=== PATIENT | female | born 1955 | race Caucasian/White ===

== ENCOUNTER 2023-11-13 08:43 | Observation (INO) | payer MEDICARE, OTHER ==
[~2023-11-13 08:43] MED LIST: Ropivacaine 49.25 ML, Ketorolac 30 MG, EPINEPHrine 0.5 MG, cloNIDine 80 MCG in Sodium C... INJECT SCH; Tranexamic Acid IN NACL,ISO-OS 1,000 MG in Premix Bag 1 BAG IV SCH
[2023-11-13] MEDS ORDERED: fentaNYL 100 MCG/2 ML SDV ONE (08:52)
[2023-11-13] MEDS ORDERED: Ondansetron 4 MG/2 ML SDV ONE (08:53)
[2023-11-13] MEDS ORDERED: Midazolam 1 MG/ML 2 ML SDV ONE (08:53)
[2023-11-13] MEDS ORDERED: dexmedeTOMIDine HCl 200 MCG/2 ML SDV ONE (08:53)
[2023-11-13] MEDS ORDERED: Phenylephrine 1% 10 MG/ML SDV ONE (08:53)
[2023-11-13] MEDS ORDERED: propofoL 50 ML ONE (08:53)
[2023-11-13] MEDS ORDERED: Metoclopramide 10 MG/2 ML SDV IVPUSH PRN (09:02)
[2023-11-13] MEDS ORDERED: fentaNYL 50 MCG/ML SDV IVPUSH PRN (09:02)
[2023-11-13] MEDS ORDERED: droPERidol 5 MG/2 ML SDV IVPUSH PRN (09:02)
[2023-11-13] MEDS ORDERED: Albuterol 0.083% 2.5 MG/3 ML Neb Soln NEB PRN (09:02)
[2023-11-13] MEDS ORDERED: Ondansetron 4 MG/2 ML SDV IVPUSH PRN ×2 (09:02→13:02)
[2023-11-13] MEDS ORDERED: Naloxone 0.4 MG/ML SDV IVPUSH PRN (09:02)
[2023-11-13] MEDS ORDERED: Morphine 2 MG/ML SYRINGE IVPUSH PRN ×2 (09:02→13:02)
[2023-11-13] MEDS ORDERED: HYDROmorphone 1 MG/ML Syringe IVPUSH PRN (09:02)
[2023-11-13] MEDS ORDERED: Lidocaine 1% 5 ML VIAL ONE (09:04)
[2023-11-13] MEDS: Lactated Ringers 1,000 ML IV SCH (09:15)
[2023-11-13] MEDS ORDERED: Ropivacaine 0.5% 5 MG/ML 30 ML SDV ONE (09:41)
[2023-11-13] MEDS ORDERED: EPINEPHrine 1 MG/1 ML Amp ONE (10:37)
[2023-11-13] MEDS ORDERED: ceFAZolin 2 GM Vial ONE (10:58)
[2023-11-13] MEDS ORDERED: Tranexamic Acid 1,000 MG/10 ML Vial ONE (10:58)
[2023-11-13] MEDS ORDERED: Propofol 200 MG/20 ML SDV ONE (12:06)
[2023-11-13] MEDS ORDERED: Sodium Chloride 0.9% 2.5 ML Syringe FLUSH PRN (13:02)
[2023-11-13] MEDS ORDERED: Aluminum Hydroxide/Magnesium Hydroxide/Simethicone XS Susp 30 ML Cup PO PRN (13:02)
[2023-11-13] MEDS ORDERED: Sodium Chloride 0.9% 10 ML Syringe FLUSH PRN (13:02)
[2023-11-13] MEDS ORDERED: diphenhydrAMINE 25 MG Cap PO PRN (13:02)
[2023-11-13] MEDS ORDERED: oxyCODONE 5 MG Tab PO PRN (13:02)
[2023-11-13] MEDS: traMADol 50 MG Tab PO PRN (15:02)
[2023-11-13 15:07] LABS: BASOPHILS ABSOLUTE AUTO 0.04 K/uL (0.00-0.20); BASOPHILS PERCENT AUTO 0.5 % (0.0-1.0); EOSINOPHILS ABSOLUTE AUTO 0.17 K/uL (0.00-0.45); EOSINOPHILS PERCENT AUTO 2.3 % (0.0-6.0); HEMATOCRIT 37.5 % (37.0-47.0); HEMOGLOBIN 12.6 g/dL (12.0-16.0); IMMATURE GRAN ABSOLUTE AUTO 0.02 K/uL (0.00-0.05); IMMATURE GRAN PERCENT AUTO 0.3 % (0.0-0.4); LYMPHOCYTES ABSOLUTE AUTO 2.35 K/uL (1.00-4.80); LYMPHOCYTES PERCENT AUTO 32.3 % (24.0-44.0); MEAN CORPUSCULAR HEMOGLOBIN 31.5 pg (28.0-32.0); MEAN CORPUSCULAR HGB CONC 33.6 g/dL (32.0-36.0); MEAN CORPUSCULAR VOLUME 93.8 fL (83.0-99.0); MEAN PLATELET VOLUME 9.4 fL (9.4-12.3); MONOCYTES ABSOLUTE AUTO 0.45 K/uL (0.00-0.80); MONOCYTES PERCENT AUTO 6.2 % (0.0-8.0); NEUTROPHILS ABSOLUTE AUTO 4.25 K/uL (1.80-7.70); NEUTROPHILS PERCENT AUTO 58.4 % (41.0-71.0); PLATELET COUNT,PLT 167 K/uL (150-400); WHITE BLOOD CELL COUNT,WBC 7.28 K/uL (3.9-11.3)
[2023-11-13 15:39] LABS: CALCIUM 8.9 mg/dL (8.5-10.1); CARBON DIOXIDE,CO2 25.8 mmol/L (21.0-32.0); CREATININE 0.9 mg/dL (0.6-1.0); EST CRCL DRUG DOSING (CG) 52.34 mL/min; MAGNESIUM 2.1 mg/dL (1.8-2.4); POTASSIUM,K 4.3 mmol/L (3.5-5.1)
[2023-11-13] MEDS: Acetaminophen 325 MG Tab PO SCH (17:03)
[2023-11-13] MEDS: ceFAZolin 2 GM in Sodium Chloride 0.9% 50 ML IV SCH ×2 (18:02→19:38)
[2023-11-13] MEDS: Aspirin 325 MG Tab PO SCH (21:49)
[2023-11-13] MEDS: Docusate Sodium 100 MG Cap PO SCH (21:49)
[2023-11-14 06:26] LABS: HEMATOCRIT 32.5 % (37.0-47.0); HEMOGLOBIN 10.9 g/dL (12.0-16.0)
[2023-11-14 06:43] LABS: CALCIUM 8.4 mg/dL (8.5-10.1); EST CRCL DRUG DOSING (CG) 47.1 mL/min; MAGNESIUM 1.9 mg/dL (1.8-2.4); POTASSIUM,K 4.3 mmol/L (3.5-5.1)
[2023-11-14] MEDS: Famotidine 20 MG Tab PO SCH (09:51)
[2023-11-14] MEDS: Losartan 50 MG Tab PO SCH (09:52)
[2023-11-14] MEDS: Polyethylene Glycol 3350 Powder 17 GM Packet PO SCH (09:55)
== END 2023-11-14 12:40 | disposition home or self-care (01) ==
LOC: MW.SDS 08:43 → MW.MS 13:50
PROVIDERS: ADMIT Orthopaedic Surgery; ATTEND Orthopaedic Surgery
DX: M17.11 Unilateral primary osteoarthritis, right knee (principal); I10 Essential (primary) hypertension; I44.0 Atrioventricular block, first degree; E66.9 Obesity, unspecified; Z68.35 Body mass index [BMI] 35.0-35.9, adult; Z96.659 Presence of unspecified artificial knee joint; Z79.899 Other long term (current) drug therapy; Z88.0 Allergy status to penicillin
CPT/HCPCS: 27447; 36415; 64447; 73560; 80048; 82947; 83735; 85014; 85018; 85025; 86850; 86900; 86901; 97110; 97162; 97530; A9270; C1713; C1776; J0171; J0690; J0735; J1885; J2250; J2371; J2704; J2795; J3010; J3490; J7120; J2405

== ENCOUNTER 2025-02-17 07:30 | Observation (INO) | payer MEDICARE, OTHER ==
[~2025-02-17 07:30] MED LIST changes: +Ropivacaine 0.5% 5 MG/ML 30 ML SDV ONE; +Sodium Chloride 0.9% 20 ML ONE; -Tranexamic Acid IN NACL,ISO-OS 1,000 MG in Premix Bag 1 BAG IV SCH; +dexmedeTOMIDine HCl 200 MCG/2 ML SDV ONE
[2025-02-17] MEDS ORDERED: Lidocaine 2% 5 ML SDV ONE (07:32)
[2025-02-17] MEDS ORDERED: propofoL 500 MG/50 ML 50 ML ONE (07:45)
[2025-02-17] MEDS ORDERED: fentaNYL 100 MCG/2 ML SDV ONE (07:54)
[2025-02-17] MEDS ORDERED: Morphine 2 MG/ML SYRINGE IVPUSH PRN (07:57)
[2025-02-17] MEDS ORDERED: Naloxone 0.4 MG/ML SDV IVPUSH PRN (07:57)
[2025-02-17] MEDS ORDERED: Albuterol 0.083% 2.5 MG/3 ML Neb Soln NEB PRN (07:57)
[2025-02-17] MEDS ORDERED: Ondansetron 4 MG/2 ML SDV IVPUSH PRN ×2 (07:57→12:49)
[2025-02-17] MEDS ORDERED: fentaNYL 50 MCG/ML SDV IVPUSH PRN (07:57)
[2025-02-17] MEDS ORDERED: HYDROmorphone 1 MG/ML Syringe IVPUSH PRN (07:57)
[2025-02-17] MEDS ORDERED: Phenylephrine HCl In 0.9% NaCl 1 MG/10 ML Syringe IVPUSH PRN (07:57)
[2025-02-17] MEDS ORDERED: Metoclopramide 10 MG/2 ML SDV IVPUSH PRN (07:57)
[2025-02-17] MEDS ORDERED: EPINEPHrine 1 MG/1 ML Amp ONE (07:57)
[2025-02-17] MEDS: Lactated Ringers 1,000 ML IV SCH (08:09)
[2025-02-17] MEDS ORDERED: Famotidine 20 MG/2 ML SDV ONE (08:14)
[2025-02-17] MEDS: Famotidine 20 MG/2 ML SDV IVPUSH SCH (08:15)
[2025-02-17] MEDS ORDERED: Midazolam 1 MG/ML 2 ML SDV ONE (09:41)
[2025-02-17] MEDS ORDERED: ceFAZolin 1 GM Vial ONE (09:51)
[2025-02-17] MEDS ORDERED: Tranexamic Acid 1,000 MG/10 ML Vial ONE (10:10)
[2025-02-17] MEDS ORDERED: ePHEDrine 50 MG/ML SDV ONE (10:10)
[2025-02-17] MEDS ORDERED: Propofol 200 MG/20 ML SDV ONE (11:15)
[2025-02-17] MEDS ORDERED: diphenhydrAMINE 25 MG Cap PO PRN (12:49)
[2025-02-17] MEDS ORDERED: oxyCODONE 5 MG Tab PO PRN (12:49)
[2025-02-17] MEDS ORDERED: Bisacodyl 10 MG Supp RECTAL PRN (12:49)
[2025-02-17] MEDS ORDERED: Sodium Chloride 0.9% 10 ML Syringe FLUSH PRN (12:49)
[2025-02-17] MEDS ORDERED: Sodium Chloride 0.9% 2.5 ML Syringe FLUSH PRN (12:49)
[2025-02-17] MEDS ORDERED: traMADol 50 MG Tab PO PRN ×2 (12:49)
[2025-02-17] MEDS: Acetaminophen 325 MG Tab PO SCH (13:41)
[2025-02-17] MEDS: ceFAZolin 2 GM in Water For Injection, Sterile 20 ML IVPUSH ONE (13:52)
[2025-02-17] MEDS: oxyCODONE 5 MG Tab PO PRN (15:21)
[2025-02-17] MEDS: ceFAZolin 2 GM in Water For Injection, Sterile 20 ML IVPUSH SCH (17:09)
[2025-02-17] MEDS: Aspirin 325 MG Tab PO SCH (20:47)
[2025-02-17] MEDS: Docusate Sodium 100 MG Cap PO SCH (20:47)
[2025-02-18 06:11] LABS: HEMOGLOBIN 9.8 g/dL (12.0-16.0)
[2025-02-18] MEDS: Famotidine 20 MG Tab PO SCH (09:26)
[2025-02-18] MEDS: Polyethylene Glycol 3350 Powder 17 GM Packet PO SCH (09:27)
== END 2025-02-18 12:45 | disposition home or self-care (01) ==
LOC: MW.SDS 07:30 → MW.MS 13:05
PROVIDERS: ADMIT Orthopaedic Surgery; ATTEND Orthopaedic Surgery
DX: M17.12 Unilateral primary osteoarthritis, left knee (principal); I10 Essential (primary) hypertension; E66.9 Obesity, unspecified; Z88.0 Allergy status to penicillin; Z79.82 Long term (current) use of aspirin; Z68.30 Body mass index [BMI] 30.0-30.9, adult; Z79.899 Other long term (current) drug therapy
CPT/HCPCS: 0055T; 27447; 36415; 64447; 73560; 85014; 85018; 86850; 86900; 86901; 97116; 97162; 97530; A9270; C1776; J0690; J0735; J1885; J2003; J2250; J2704; J2795; J3010; J7120; 01402; 99100; J3490